=== PATIENT | male | born 1975 | race Caucasian/White ===

== ENCOUNTER 2021-08-14 10:56 | Day surgery (SDC) | payer OTHER, BC ==
[~2021-08-14] VITALS: Ht 180.3 cm; Wt 105.7 kg
[~2021-08-14 10:56] MED LIST: ASPI81EC PO; FISH1000 PO; MEDICAL MARIJUANA; NIAC500ER PO; OMEP40CA12 PO
[2021-08-14] MEDS ORDERED: TADA10TA PO (11:32)
[2021-08-14] MEDS ORDERED: IBUP800 PO (11:33)
[2021-08-14] MEDS ORDERED: Acetaminophen650 M1 PO (11:33)
--- NOTE | 2021-08-14 12:02 | NUR ---
08/14/21 1202 Tara Alberto REPORTED PRESENCE OF POISON [place] ON PT'S ARMS, HANDS, FACE AND ABDOMEN. DR. NOLAN TO ASSESS AT BEDSIDE. PT LYING QUIETLY IN BED, CALL LIGHT IN REACH.
== END 2021-08-14 12:19 | disposition home or self-care (01) ==
LOC: ORSCSDS 10:56
DX: S42.022A Displaced fracture of shaft of left clavicle, initial encounter for closed fracture (principal); Z53.9 Procedure and treatment not carried out, unspecified reason
CPT/HCPCS: J0690; J2250; J2704; J3010; J7120